=== PATIENT | female | born 1990 | race Caucasian/White ===

== ENCOUNTER 2018-02-02 17:03 | Emergency (ER) | payer OTHER, MEDICAID ==
[~2018-02-02] VITALS: Ht 157.5 cm; Wt 49.9 kg
[~2018-02-02 17:03] MED LIST: BACTRIM DS TAB1 EACH PO; KEFLEX500 MG PO; NORCO 5-325 TA1 EACH PO
[2018-02-02] MEDS ORDERED: KEFLEX500 M1 PO (17:26)
[2018-02-02] MEDS ORDERED: BACTRIM DS TAB1 EACH PO ×3 (17:26→17:28)
[2018-02-02] MEDS ORDERED: NORCO 5-325 TA1 EACH PO (17:29)
[2018-02-02 17:47] VITALS: BP 114/56
== END 2018-02-02 17:47 | disposition home or self-care (01) ==
LOC: M.ERS 17:03
DX: L03.116 Cellulitis of left lower limb (principal)

== ENCOUNTER 2018-03-16 14:19 | Emergency (ER) | payer OTHER, MEDICAID ==
[~2018-03-16] VITALS: Ht 152.4 cm; Wt 44.5 kg
[~2018-03-16 14:19] MED LIST changes: +KEFLEX500 M1 PO
[2018-03-16] MEDS ORDERED: BACTRIM DS TAB1 EACH PO (14:52)
[2018-03-16] MEDS ORDERED: ULTRAM 50MG TAB50 MG PO (14:55)
[2018-03-16 15:09] LABS: INFLUENZA A ANTIGEN None Detected (None Detect); INFLUENZA B ANTIGEN None Detected (None Detect)
[2018-03-16 15:28] VITALS: BP 119/59
== END 2018-03-16 15:29 | disposition home or self-care (01) ==
LOC: M.ERS 14:19
PROVIDERS: Physician Assistant
DX: L03.116 Cellulitis of left lower limb (principal); R59.1 Generalized enlarged lymph nodes